=== PATIENT | male | born 1930 | race Caucasian/White ===

== ENCOUNTER 2016-10-27 11:48 | Observation (INO) | payer MEDICARE, OTHER ==
--- NOTE | 2016-10-27 12:12 | ERNOTE ---
Date of Service: 10/27/16 Time Seen by Provider: 10/27/16 12:05 Stated Complaint: CHEST CONGESTION Presenting Symptoms:: cough Source: patient, family - granddtr Exam Limitations: no limitations Immunizations: IMMUNIZATION HX Immunizations Up to Date Yes History of Influenza Vaccine Yes Hx Pneumococcal Vaccination Yes Allergies/Adverse Reactions: Allergies No Known Allergies Allergy (Verified 10/27/16 11:59) Home Medications: HOME MEDICATIONS Atorvastatin Calcium 40 mg PO DAILY 10/27/16 [Last Taken Unknown] Chlorthalidone [Hygroton] 12.5 mg PO DAILY 10/27/16 [Last Taken Unknown] Cholecalciferol (Vitamin D3) [Vitamin D] 2,000 unit PO DAILY 10/27/16 [Last Taken Unknown] Lisinopril [Prinivil] 10 mg PO DAILY 10/27/16 [Last Taken Unknown] Pantoprazole Sodium 40 mg PO DAILY 10/27/16 [Last Taken Unknown] Propranolol HCl 80 mg PO DAILY 10/27/16 [Last Taken Unknown] Thiamine HCl [B-1] 100 mg PO DAILY 10/27/16 [Last Taken Unknown] - Pain Score Pain Score #1 Pain Score: 0 - History of Present Ilness Narrative: 86yo, M, presents to ER for evaluation of cough. He reports cough started yesterday, but describes cough as terrible. Reports sinus congestion and drainage for 2-3 days, along with lightheadedness. Date (Duration): 10/26/16 Modifying Factors - Improves: Reports: other - none Modifying Factors - Worsens: Reports: other - none Associated Symptoms: Reports: cough - productive cough with [place] sputum, shortness of breath, wheezing, nasal congestion, nasal drainage, lightheadedness , sore throat, other - possible subjective. Denies: earache Review of Systems - Review of Systems Constitutional: Present: fever - subjective, fatigue ENT: Present: nose congestion, nasal drainage, sore throat. Absent: ear pain, ear discharge Respiratory: Present: shortness of breath, cough, wheezing Cardiology: Absent: chest pain, palpitations, syncope, edema Gastrointestinal/Abdominal: Absent: nausea, vomiting Skin: Absent: rash Neurological: Absent: other - granddtr denies noting confusion - Patient's Past Medical History Patient History - Medical: Diabetes Type 2 Insulin Dependent Patient History - Cardiac/Respiratory: COPD, Hypertension, Hyperlipidemia, Sleep Apnea Patient History - Cancer: Bladder Patient History - Surgical Procedures: No surgical history Patient History - Other: None - Social History Living Situations: home Psych History: No pertinent hx Smoking Status: Former smoker Alcohol Use: occasionally Drug Use: none - Immunizations Immunizations Up to Date: Yes Hx Pneumococcal Vaccination: Yes History of Influenza Vaccine: Yes Physical Exam - Physical Exam General Appearance: Present: wd/wn, alert, no apparent distress Ears, Nose, Throat: Present: nasal congestion - moderate nasal dc , normal pharynx, other - TMs intact george and free of erythema Respiratory: Present: no respiratory distress, no accessory muscle use, rales - george bases. Absent: rhonchi, wheezing Cardiovascular/Chest: Present: regular rate, rhythm - murmur present most prominant over R. sternal border Neurological Exam: Present: alert, oriented, normal mood/affect ED Progress - Date and Time Seen: Date and Time: 10/27/16 13:35 O2 sats 88-91% on RA, started on 2LNC sats 92% on 2LNC. Spoke with WILBERT Talley re: admission. Admission accepted. Discussed with pt and family, pt agrees to admission. Continues to have rales to george bases. 10/27/16 13:52 Pt PCP at [facility], spoke with WILBERT Talley. Will need to contact [facility] to check bed availability. 10/27/16 14:10 Updated pt and family re: possible [facility] admission. Call has been placed to [facility], but awaiting return call. 10/27/16 14:57 Provider returned call to the [facility] in [place]. Spoke with Cirilo, the legal office administrator on duty. Discussed possibility of transfer to [facility]. Cirilo reports their hospital is "full". Pt will be admitted to [facility]. Called and spoke with Noa Millan, who confirmed admission. Also discussed final CXR results and radiology suggesting possible follow up with CT with Nilson Anderson. [facility], they note CXR available and will fax after consent to release received. [facility] [place] and will fax. - Results and Orders Patient's Lab Results:: I have reviewed the patient's lab results. - Vital Signs Patient's Vital Signs:: I have reviewed the patient's vital signs. Vital Signs: Vital Signs 10/27/16 11:53 Temperature 37.7 C H Pulse Rate 85 Respiratory 18 Rate Blood Pressure 127/80 O2 Sat by Pulse 92 Oximetry - X-Ray X-Ray #1 X-Ray: chest Interpretation: Reviewed by me X-ray Comments: [facility] PATIENT RADIOLOGY STUDY REPORT Patient Patient Name:NILA MOCK Date: 1930 Sex: M Order Number: [id number] Unique Exam ID: [id number] Exam Requested: CXRPALAT - Chest PA Lateral * Date Scheduled: 10-27-2016 12:48 PM Study Priority: Requesting Service: Requesting Physician: Jovita Kahn Reason for Exam: productive cough, fever Radiological Report : [place] [address] NAME: NILA MOCK : 1930 MR #: [id number] CC: LOC: ER ADM DATE: X-RAY REPORT RAD/Chest PA Lateral * Exam Date: 10/27/2016 12:48 Ordering Physician: Jovita Kahn HISTORY: productive cough, fever Additional history from technologist: Productive cough, dizziness. Lightheadedness. TECHNIQUE: PA and lateral views of the chest were obtained. 4 images. COMPARISONS: None Available FINDINGS: Chest PA Lateral * Hyperinflated lung volumes. There is a opacity in the right middle lobe, with obscuration of the right cardiac border. No definable pneumothorax. There is a small right-sided pleural effusion, with the lateral image suggesting a potential loculated component versus pleural-based mass in the posterior aspect of the right lower chest. Cardiomegaly suggested. Vascular calcification overlying the aortic knob suggestive of atherosclerosis. Trachea is in normal position, given patient positioning. Bones show degenerative changes of the spine. IMPRESSION: 1. Right middle lobe opacity noted. Correlate clinically for pneumonia. 2. Small right-sided pleural effusion, with a potential loculated component versus pleural-based mass seen on the lateral image projecting over the posterior aspect of the right chest. 3. Recommend radiographic follow-up to document resolution. Routine chest CT can be considered if there is a clinical concern for possible malignancy. 4. Cardiomegaly. Electronically signed by Norma Almanza M.D.. Norma Almanza MD Dict: 10/27/16 1316 Typed: 10/27/16 1316/ 10/27/16 1320 10/27/16 1323 , Approved by: NORMA ALMANZA Approval Date: 10-27-2016 Approval Time: 01:16 PM THIS REPORT WAS RECEIVED FROM THE [employer] SYSTEM - Progress/Reassessment Chief Complaint: Upper Respiratory Symptoms Departure - Departure Clinical Impression: COPD exacerbation Pneumonia Qualifiers: Pneumonia type: due to unspecified organism Laterality: right Lung location: middle lobe of lung Qualified Code(s): J18.1 - Lobar pneumonia, unspecified organism Disposition: [facility] Condition: Stable
[2016-10-27] MEDS ORDERED: ALBUTEROL SULFATE/IPRATROPIUM 3 ML NEBU IH ONE ×2 (12:17→12:20)
[2016-10-27 12:32] LABS: Hemoglobin 14.6 gm/dL (13.5-18.0); Mean Cell Volume 97.4 fl (78-100); Mean Corpuscular Hemoglobin 34.7 pg (27-31); Mean Corpuscular Hgb Conc 35.6 g/dl (32-36); Mean Platelet Volume 10.6 fl (6.0-9.5); Platelet Count 203 K/mm3 (150-450); Red Blood Count 4.21 M/mm3 (4.7-6.0); Red Cell Distribution Width 12.5 % (11.5-14.0); White Blood Count 15.2 K/mm3 (4.0-10.5)
[2016-10-27 12:41] LABS: Total Cells Counted 100
[2016-10-27 12:44] LABS: Albumin * 3.5 gm/dl (3.4-5.0); BUN/Creatinine Ratio 12.5 (9.0-21.6); Bilirubin, Total 0.7 mg/dL (0.0-1.1); Ca. Corrected For Albumin 8.9 mg/dL (8.4-10.2); Calcium * 8.8 mg/dL (7.9-10.9); Carbon Dioxide 30.1 mmol/L (24-32.6); Potassium 4.1 mmol/L (3.4-4.6); Total Protein 8.1 gm/dL (6.2-8.2)
[2016-10-27 12:45] LABS: Atypical (Reactive) Lymph 8 % (0-2); Eosinophil 1 % (0-3); Lymphocyte 6 % (20-51); Monocyte 14 % (0-9); Neutrophil 71 % (42-75); Neutrophil # 10.8 K/mm3 (1.3-6.0); Platelet Estimate Normal (NORMAL); RBC Morphology Normal (NORMAL)
[2016-10-27] MEDS ORDERED: AZITHROMYCIN 500 MG in DEXTROSE 5 % IN WATER 250 ML IV SCH ×2 (13:15)
[2016-10-27] MEDS ORDERED: ACETAMINOPHEN 325 MG TABLET PO PRN (15:30)
[2016-10-27] MEDS ORDERED: METHYLPREDNISOLONE SOD SUCC 80 MG in WATER FOR INJ.,BACTERIOSTATIC 0 ML IV SCH (17:00)
--- NOTE | 2016-10-27 17:03 | HP ---
Chief Complaint - Chief Complaint Date of Service: 10/27/16 Time of Service: 15:45 Chief Complaint: shortness of breath History of Present Illness: Nile is an 86 year old male patient of [facility] ([facility] in [place]) with a PMH of COPD, DM T2, HTN, HLD, GERD, FABIO (on cpap), BPH, etoh abuse, alcoholic fatty liver, Gout, RA, Chronic right plueral effusion and history of subpleural pulmonary nodules (followed by pulmonary at [facility]) who presented to the ER with c /o harsh cough x1 day and URI symptoms x 3 days. also c/o dyspea and wheezing. ER eval revealed elevated wbc at 15.2 with 71% neutrophils. chest xray showed RML pneumonia, small right sided pleural effusion with a potentially locuated component vs pleural based mass and cardiomegaly. In the ER, that patient desaturated to 88% on RA and needed 2L NC supplementation to maintain oxygen saturation of 93%. Patient uses O2 at 3L at night only but does not use oxygen during the day. Patient was started on Rocephin 1 gm iv q 24 hours and Azithromycin 500 mg iv daily in the ER. The ER called [facility] in [place] but they declined transfer of the patient, stating that their facility is full. Thus, patient to be admitted for RML pneumonia and COPD exacerbation. - Patient's Past Medical History Patient History - Medical: Alcohol Abuse, Diabetes Type 2 Insulin Dependent, GERD, Rheumatoid Arthritis Patient History - Cardiac/Respiratory: COPD, Hypertension, Hyperlipidemia, CPAP/ BiPAP Home Use, Sleep Apnea Patient History - Cancer: Bladder Patient History - Surgical Procedures: Urology - TURB Patient History - Other: None - Family History Father Family History - Medical: , History Unknown Family History - Cardiac/Respiratory: History Unknown Family History - Cancer: No pertinent family hx Mother Family History - Medical: History Unknown Family History - Cardiac/Respiratory: History Unknown Family History - Cancer: History Unknown - Social History Living Situations: home Psych History: No pertinent hx Smoking Status: Former smoker Have you smoked in the past 12 months: No Do you dip or chew tobacco: No Smoking Start Date: 07/05/02 Patient requests Smoking Cessation Consult: No Initiate information on Smoking Cessation: No Alcohol Use: occasionally Drug Use: none - Immunizations Immunizations Up to Date: Yes Hx Pneumococcal Vaccination: Yes History of Influenza Vaccine: Yes Review Of Systems (GEN) - Review of Systems Generalized/Overall Review: Present: Weakness, Fever, Malaise EENTM: Present: No Symptoms Reported Respiratory: Present: Cough, Shortness of Breath, Wheezing. Absent: Stridor Cardiac: Present: No Symptoms Reported Abdominal: Present: No Symptoms Reported Genitourinary: Present: No Symptoms Reported Musculoskeletal: Present: No Symptoms Reported Neurological: Present: No Symptoms Reported Skin: Present: No Symptoms Reported Endocrine: Present: No Symptoms Reported Misc: All systems neg except as marked Immunizations: IMMUNIZATION HX Immunizations Up to Date Yes History of Influenza Vaccine Yes Hx Pneumococcal Vaccination Yes Allergies/Adverse Reactions: Allergies Allergy/AdvReac Type Severity Reaction Status Date / Time No Known Allergies Allergy Verified 10/27/16 11:59 Home Medications: HOME MEDICATIONS Atorvastatin Calcium 40 mg PO DAILY 10/27/16 [Last Taken Unknown] Chlorthalidone [Hygroton] 12.5 mg PO DAILY 10/27/16 [Last Taken Unknown] Cholecalciferol (Vitamin D3) [Vitamin D] 2,000 unit PO DAILY 10/27/16 [Last Taken Unknown] Lisinopril [Prinivil] 10 mg PO DAILY 10/27/16 [Last Taken Unknown] Pantoprazole Sodium 40 mg PO DAILY 10/27/16 [Last Taken Unknown] Propranolol HCl 80 mg PO DAILY 10/27/16 [Last Taken Unknown] Thiamine HCl [B-1] 100 mg PO DAILY 10/27/16 [Last Taken Unknown] Exam - Exam Vital Signs: Vital Signs - Last Taken Temp 36.5 C 10/27/16 15:41 Pulse 73 10/27/16 15:41 Resp 16 10/27/16 15:41 BP 137/57 10/27/16 15:41 Pulse Ox 96 10/27/16 15:41 Constitutional: Present: Alert, Cooperative, No distress, Elderly ENT Exam: Present: hard of hearing Eye Exam: bilateral eye: normal inspection Neck: Present: supple Back Exam: Present: no CVA tenderness Breasts: Present: Exam deferred Respiratory: Present: chest non-tender, rales - RML towards base, wheezing, expiration (prolonged) Cardiovascular/Chest: Present: normal peripheral pulses, regular rate, rhythm, no chest tenderness Peripheral Pulses: carotid (R): 2+, carotid (L): 2+, radial (R): 2+, radial (L) : 2+ Abdomen: Present: soft, nontender, nondistended /Rectal: Present: Exam deferred Extremity: Present: non-tender, normal inspection Skin Exam: Present: normal color, warm/dry, no cyanosis Diagnostic Studies: Laboratory Results WBC 15.2 K/mm3 (4.0-10.5) H 10/27/16 12:25 RBC 4.21 M/mm3 (4.7-6.0) L 10/27/16 12:25 Hgb 14.6 gm/dL (13.5-18.0) 10/27/16 12:25 Hct 41.0 % (42.0-52.0) L 10/27/16 12:25 MCV 97.4 fl (78-100) 10/27/16 12:25 MCH 34.7 pg (27-31) H 10/27/16 12:25 MCHC 35.6 g/dl (32-36) 10/27/16 12:25 RDW 12.5 % (11.5-14.0) 10/27/16 12:25 Plt Count 203 K/mm3 (150-450) 10/27/16 12:25 MPV 10.6 fl (6.0-9.5) H 10/27/16 12:25 Neutrophils % (Manual) 71 % (42-75) 10/27/16 12:25 Lymphocytes % (Manual) 6 % (20-51) L 10/27/16 12:25 Monocytes % (Manual) 14 % (0-9) H 10/27/16 12:25 Eosinophils % (Manual) 1 % (0-3) 10/27/16 12:25 Neutrophils # (Manual) 10.8 K/mm3 (1.3-6.0) H 10/27/16 12:25 Lymphocytes # (Manual) 0.9 k/mm3 (1.5-3.5) L 10/27/16 12:25 Monocytes # (Manual) 2.1 k/mm3 (0.0-1.0) H 10/27/16 12:25 Eosinophils # (Manual) 0.2 k/mm3 (0.0-0.7) 10/27/16 12:25 Atypic/Reactive Lymphs 8 % (0-2) H 10/27/16 12:25 Platelet Estimate Normal (NORMAL) 10/27/16 12:25 RBC Morphology Normal (NORMAL) 10/27/16 12:25 Sodium 135 mmol/L (132-142) 10/27/16 12:25 Plasma Sodium 136 mmol/L (130-142) 10/27/16 12:25 Potassium 4.1 mmol/L (3.4-4.6) 10/27/16 12:25 Chloride 96 mmol/L (97-106) L 10/27/16 12:25 Carbon Dioxide 30.1 mmol/L (24-32.6) 10/27/16 12:25 Anion Gap 13.0 mmol/L (6.8-13.8) 10/27/16 12:25 BUN 11 mg/dL (6-23) 10/27/16 12:25 Creatinine 0.88 mg/dL (0.4-1.4) 10/27/16 12:25 Est GFR (Non-Af Amer) 87 mL/min (60-130) 10/27/16 12:25 BUN/Creatinine Ratio 12.5 (9.0-21.6) 10/27/16 12:25 Random Glucose 135 mg/dL (70-110) H 10/27/16 12:25 Calcium 8.8 mg/dL (7.9-10.9) 10/27/16 12:25 Calcium Adj for Albumin 8.9 mg/dL (8.4-10.2) 10/27/16 12:25 Total Bilirubin 0.7 mg/dL (0.0-1.1) 10/27/16 12:25 AST 57 U/L (0-48) H 10/27/16 12:25 ALT 65 U/L (19-67) 10/27/16 12:25 Alkaline Phosphatase 157 U/L (50-170) 10/27/16 12:25 Total Protein 8.1 gm/dL (6.2-8.2) 10/27/16 12:25 Albumin 3.5 gm/dl (3.4-5.0) 10/27/16 12:25 Assessment/Plan - Narrative Narrative: Pneumonia, RML - Antibiotics - Rocephin 1 gm iv q 24 hours - Day #1 - Azithromycin 500 mg iv q 24 hours - Day #1 - Start probiotics - Incentive spirometer q 2 hours while awake - Cornet q 2 hours while awake. - Check urine for legionella or strep pneumonia. - sputum culture ordered and pending. COPD exacerbation - Antibiotics as above - Steroids due to hypoxia and respiratory distress - Solumedrol 80 mg iv q 8 hours - Day #1 - Duonebs TID while awake - Also with acute on chronic respiratory failure - baseline need is oxygen at night only - currently needing oxygen during the day to maintain sats greater than 90 % - cornet q 2 hours while awake - incentive spirometer q 2 hours while awake. Etoh abuse - chronically drinks 2-4 alcoholic beverages a day - last alcoholic beverage was 10/27/16 in the am. - etoh withdrawal protocol ordered - seizure precautions - banana bag at 100 ml per hour - check ekg, mg and phos - monitor on telemetry FABIO - on cpap - cpap ordered while in hospital - cont pulse ox at night HTN - vital signs q 4 hours DM - accu-check at AC with low dose sliding scale as needed. - consistent carb diet. Code status: DNR VTE: lovenox GI proph: protonix. - Assessment/Plan (1) Pneumonia Problem: Acute Qualifiers: Pneumonia type: due to unspecified organism Laterality: right Lung location: middle lobe of lung Qualified Code(s): J18.1 - Lobar pneumonia, unspecified organism (2) COPD exacerbation Problem: Acute (3) Acute and chronic respiratory failure with hypoxia Problem: Acute (4) HTN (hypertension) Problem: Chronic Qualifiers: Hypertension type: essential hypertension Qualified Code(s): I10 - Essential (primary) hypertension (5) HLD (hyperlipidemia) Problem: Chronic Qualifiers: Hyperlipidemia type: unspecified Qualified Code(s): E78.5 - Hyperlipidemia , unspecified (6) Diabetes Problem: Chronic Qualifiers: Diabetes mellitus type: type 2 Diabetes mellitus complication status: with unspecified complications Diabetes mellitus termite treater insulin use: without snf use Qualified Code(s): E11.8 - Type 2 diabetes mellitus with unspecified complications (7) GERD (gastroesophageal reflux disease) Problem: Chronic Qualifiers: Esophagitis presence: esophagitis presence not specified Qualified Code(s) : K21.9 - Gastro-esophageal reflux disease without esophagitis (8) ETOH abuse Problem: Chronic (9) FABIO on CPAP Problem: Chronic
[2016-10-27] MEDS: SACCHAROMYCES BOULARDII 250 MG CAPSULE PO SCH ×2 (17:57→20:48)
[2016-10-27] MEDS ORDERED: ENOXAPARIN SODIUM 40 MG/0.4 ML SYRG SC SCH (18:00)
[2016-10-27] MEDS ORDERED: LORazepam 2 MG/ML DISP.SYRIN IV PRN ×3 (18:08)
[2016-10-27] MEDS ORDERED: MULTIVIT INFUSN,ADULT 4,VIT K 10 ML, THIAMINE HCL 100 MG in NORMAL SALINE 1,000 ML IV ONE (18:08)
[2016-10-27] MEDS: ALBUTEROL SULFATE/IPRATROPIUM 3 ML NEBU IH SCH (18:14)
[2016-10-27 18:38] LABS: Magnesium 1.6 mg/dL (1.2-2.8); Phosphorus 3.3 mg/dL (2.2-4.2)
[2016-10-27] MEDS ORDERED: MAGNESIUM OXIDE 400 MG TABLET PO ONE (18:50)
[2016-10-27] MEDS ORDERED: MAGNESIUM OXIDE 400 MG TABLET ONE (20:32)
[2016-10-27] MEDS: METHYLPREDNISOLONE SOD SUCC 80 MG in WATER FOR INJ.,BACTERIOSTATIC 0 ML IV SCH (20:38)
[2016-10-27] MEDS: FOLIC ACID 1 MG TABLET PO SCH (20:38)
[2016-10-27] MEDS: MULTIVITAMINS 1 CAP CAPSULE PO SCH (20:38)
[2016-10-27] MEDS: INSULIN LISPRO 100 UNITS/ML VIAL SC SCH (20:40)
[2016-10-28] MEDS: METHYLPREDNISOLONE SOD SUCC 80 MG in WATER FOR INJ.,BACTERIOSTATIC 0 ML IV SCH ×2 (03:38→12:02)
[2016-10-28] MEDS ORDERED: MAGNESIUM OXIDE 400 MG TABLET PO SCH (04:00)
[2016-10-28 05:51] LABS: Hematocrit 39.6 % (42.0-52.0); Hemoglobin 13.9 gm/dL (13.5-18.0); Mean Cell Volume 97.5 fl (78-100); Mean Corpuscular Hemoglobin 34.2 pg (27-31); Mean Corpuscular Hgb Conc 35.1 g/dl (32-36); Mean Platelet Volume 11.1 fl (6.0-9.5); Neutrophil # 5.6 K/mm3 (1.3-6.0); Neutrophil % 89.3 % (42-75.0); Platelet Count 188 K/mm3 (150-450); Red Blood Count 4.06 M/mm3 (4.7-6.0); Red Cell Distribution Width 12.1 % (11.5-14.0); White Blood Count 6.3 K/mm3 (4.0-10.5)
[2016-10-28 06:02] LABS: Albumin * 3.1 gm/dl (3.4-5.0); Anion Gap 12.5 mmol/L (6.8-13.8); BUN/Creatinine Ratio 14.5 (9.0-21.6); Bilirubin, Total 0.6 mg/dL (0.0-1.1); Ca. Corrected For Albumin 8.9 mg/dL (8.4-10.2); Calcium * 8.5 mg/dL (7.9-10.9); Carbon Dioxide 28.7 mmol/L (24-32.6); Magnesium 1.8 mg/dL (1.2-2.8); Phosphorus 3.3 mg/dL (2.2-4.2); Potassium 4.2 mmol/L (3.4-4.6); Total Protein 7.5 gm/dL (6.2-8.2)
[2016-10-28] MEDS: ALBUTEROL SULFATE/IPRATROPIUM 3 ML NEBU IH SCH ×2 (06:21→13:50)
[2016-10-28] MEDS: INSULIN LISPRO 100 UNITS/ML VIAL SC SCH ×2 (06:59→12:01)
[2016-10-28] MEDS ORDERED: MAGNESIUM OXIDE 400 MG TABLET PO ONE (07:00)
[2016-10-28] MEDS ORDERED: THIAMINE HCL 100 MG TABLET PO SCH (09:00)
[2016-10-28] MEDS ORDERED: PROPRANOLOL HCL 80 MG TABLET PO SCH (09:00)
[2016-10-28] MEDS ORDERED: CHLORTHALIDONE 25 MG TABLET PO SCH (09:00)
[2016-10-28] MEDS ORDERED: LISINOPRIL 10 MG TABLET PO SCH (09:00)
[2016-10-28] MEDS ORDERED: ATORVASTATIN CALCIUM 40 MG TABLET PO SCH (09:00)
[2016-10-28] MEDS ORDERED: PANTOPRAZOLE SODIUM 40 MG TABLET.EC PO SCH ×2 (09:00)
[2016-10-28] MEDS ORDERED: CHOLECALCIFEROL 1,000 UNIT CAPSULE PO SCH (09:00)
[2016-10-28] MEDS: SACCHAROMYCES BOULARDII 250 MG CAPSULE PO SCH (09:01)
[2016-10-28] MEDS: MULTIVITAMINS 1 CAP CAPSULE PO SCH (09:01)
[2016-10-28] MEDS: FOLIC ACID 1 MG TABLET PO SCH (09:01)
[2016-10-28 11:09] VITALS: BP 108/57
--- NOTE | 2016-10-28 12:04 | DS ---
(1) Pneumonia Problem: Acute Qualifiers: Pneumonia type: due to unspecified organism Laterality: right Lung location: middle lobe of lung Qualified Code(s): J18.1 - Lobar pneumonia, unspecified organism (2) COPD exacerbation Problem: Acute (3) Acute and chronic respiratory failure with hypoxia Problem: Acute (4) HTN (hypertension) Problem: Chronic Qualifiers: Hypertension type: essential hypertension Qualified Code(s): I10 - Essential (primary) hypertension (5) HLD (hyperlipidemia) Problem: Chronic Qualifiers: Hyperlipidemia type: unspecified Qualified Code(s): E78.5 - Hyperlipidemia , unspecified (6) Diabetes Problem: Chronic Qualifiers: Diabetes mellitus type: type 2 Diabetes mellitus complication status: with unspecified complications Diabetes mellitus technician terminal and repeater insulin use: without technician terminal and repeater use Qualified Code(s): E11.8 - Type 2 diabetes mellitus with unspecified complications (7) GERD (gastroesophageal reflux disease) Problem: Chronic Qualifiers: Esophagitis presence: esophagitis presence not specified Qualified Code(s) : K21.9 - Gastro-esophageal reflux disease without esophagitis (8) ETOH abuse Problem: Chronic (9) FABIO on CPAP Problem: Chronic Description of Stay: Date of Admission: 10/27/16 Date of Discharge: 10/28/16 Description of Stay: Nile is an 86 year old male patient of [facility] ([facility] in [place]) with a PMH of COPD, DM T2, HTN, HLD, GERD, FABIO (on cpap), BPH, etoh abuse, alcoholic fatty liver, Gout, RA, Chronic right plueral effusion and history of subpleural pulmonary nodules (followed by pulmonary at [facility]) who presented to the ER with c /o harsh cough x1 day and URI symptoms x 3 days. also c/o dyspea and wheezing. ER eval revealed elevated wbc at 15.2 with 71% neutrophils. chest xray showed RML pneumonia, small right sided pleural effusion with a potentially locuated component vs pleural based mass and cardiomegaly. In the ER, patient desaturated to 88% on RA and needed 2L NC supplementation to maintain oxygen saturation of 93%. Patient uses O2 at 3L at night only but does not use oxygen during the day. Patient was started on Rocephin 1 gm iv q 24 hours and Azithromycin 500 mg iv daily in the ER. The ER called [facility] in [place] but they declined transfer of the patient, stating that their facility is full. Thus, patient to be admitted for RML pneumonia and COPD exacerbation. Patient was started on IV steroids and pulmonary toileting. By the next day, patient was able to be weaned off daytime oxygen. WBC the next morning was WNL and patient was discharged with oral antibiotics. A total time of 41 minutes was spent with the patient discussing the plan of care, prescription options, reconciliation of medications, preparing/dictating discharge summary. Procedures Performed: none Discharge Disposition: Home self care Disposition: Home self-care Condition: Undetermined Discharge Activity: Activity as tolerated Discharge Diet: Consistent carbs Problem Oriented Discharge Instructions to Patient/Family: Community-Acquired Pneumonia, Adult, [id number] Additional Patient Instructions (free text): [facility] ongoing, please call and fax discharge information to them. Dental appt on FridayNov 19 at 10:30, it was rescheduled by Effie Raphael. Follow up with Dr. Chatman on 11/18/16 at 9:45am. New Medication: 1. Levaquin 500 mg by mouth daily x 5 days. Prescriptions (Any new or edited meds): Levofloxacin [Levaquin] 500 mg PO DAILY #5 tab Complete Home Medications List: Complete Home Medication List: Atorvastatin Calcium 40 mg PO DAILY 10/27/16 Chlorthalidone [Hygroton] 12.5 mg PO DAILY 10/27/16 Cholecalciferol (Vitamin D3) [Vitamin D3] 2,000 unit PO DAILY 10/27/16 Lisinopril [Prinivil] 10 mg PO DAILY 10/27/16 Pantoprazole Sodium 40 mg PO DAILY 10/27/16 Propranolol HCl 80 mg PO DAILY 10/27/16 Thiamine HCl [B-1] 100 mg PO DAILY 10/27/16 Levofloxacin [Levaquin] 500 mg PO DAILY #5 tab 10/28/16
[2016-10-28] MEDS ORDERED: AZITHROMYCIN 500 MG in DEXTROSE 5 % IN WATER 250 ML IV SCH ×2 (14:00)
[2016-10-28] MEDS ORDERED: ROSUVASTATIN CALCIUM 20 MG TABLET PO SCH (21:00)
== END 2016-10-28 16:00 | disposition home or self-care (01) ==
LOC: ER 11:48 → MS 13:52 → UNDOADMOB 13:52
PROVIDERS: ADMIT Nurse Practitioner Critical Care Medicine; ATTEND Internal Medicine
DX: J18.1 Lobar pneumonia, unspecified organism (principal); J44.1 Chronic obstructive pulmonary disease with (acute) exacerbation; J96.21 Acute and chronic respiratory failure with hypoxia; E11.9 Type 2 diabetes mellitus without complications; E78.5 Hyperlipidemia, unspecified; K21.9 Gastro-esophageal reflux disease without esophagitis; G47.33 Obstructive sleep apnea (adult) (pediatric); F10.10 Alcohol abuse, uncomplicated; K70.0 Alcoholic fatty liver; M06.9 Rheumatoid arthritis, unspecified
CPT/HCPCS: 36415; 71020; 80053; 83735; 83880; 84100; 85007; 85025; 87040; 93005; 94640; 94660; 96365; 96366; 96367; 96372; 96375; 96376; 99285; G0378

== ENCOUNTER 2016-11-25 07:41 | Emergency (ER) | payer MEDICARE, OTHER ==
--- NOTE | 2016-11-25 08:22 | ERNOTE ---
Abdominal HPI - Narrative Date of Service: 11/25/16 - General Chief Complaint: Constipation Time Seen by Provider: 11/25/16 08:03 Source: patient Exam Limitations: no limitations - Immun/Allergies/Home Medications Immunizatons: IMMUNIZATION HX Immunizations Up to Date Yes History of Influenza Vaccine Yes Hx Pneumococcal Vaccination Yes Allergies/Adverse Reactions: Allergies No Known Allergies Allergy (Verified 11/25/16 07:53) Home Medications: HOME MEDICATIONS Atorvastatin Calcium 40 mg PO DAILY 10/27/16 [Last Taken Unknown] Chlorthalidone [Hygroton] 12.5 mg PO DAILY 10/27/16 [Last Taken Unknown] Cholecalciferol (Vitamin D3) [Vitamin D3] 2,000 unit PO DAILY 10/27/16 [Last Taken Unknown] Lisinopril [Prinivil] 10 mg PO DAILY 10/27/16 [Last Taken Unknown] Pantoprazole Sodium 40 mg PO DAILY 10/27/16 [Last Taken Unknown] Propranolol HCl 80 mg PO DAILY 10/27/16 [Last Taken Unknown] Thiamine HCl [B-1] 100 mg PO DAILY 10/27/16 [Last Taken Unknown] Levofloxacin [Levaquin] 500 mg PO DAILY #5 tab 10/28/16 [Last Taken Unknown] Acetaminophen [Pain Reliever] 500 mg PO QID PRN 11/25/16 [Last Taken Unknown] Acetaminophen with Codeine [Tylenol with Codeine #3 Tablet] 1 - 2 tab PO Q4H PRN 11/25/16 [Last Taken Unknown] Albuterol Sulfate [Proair Respiclick] 90 mcg IH PRN PRN 11/25/16 [Last Taken Unknown] Amoxicillin 500 mg PO TID 11/25/16 [Last Taken Unknown] Atorvastatin Calcium 40 mg PO HS 11/25/16 [Last Taken Unknown] Budesonide/Formoterol Fumarate [Symbicort 80-4.5 Mcg Inhaler] 4.5 mcg IH BID [Last Taken Unknown] Flunisolide 2 spray NS BID 11/25/16 [Last Taken Unknown] Ketoconazole [Nizoral A-D] 200 ml TP 11/25/16 [Last Taken Unknown] Meclizine HCl [Antivert] 25 mg PO TID 11/25/16 [Last Taken Unknown] Oxybutynin Chloride [Ditropan Xl] 5 mg PO DAILY 11/25/16 [Last Taken Unknown] Sildenafil Citrate [Viagra] 100 mg PO DAILY PRN 11/25/16 [Last Taken Unknown] Tiotropium [place] [Spiriva Respimat] 18 mcg IH DAILY 11/25/16 [Last Taken Unknown] - History of Present Illness Narrative: Patient presents to the ED for "can't poop". He relates that he has his teeth out and has been taking [place]. With this he has been unable to have a TRINO for 3 days. No abdominal pain. No vomiting. No fever. He relates he just wants to have a bowel movement. Dental pain well controlled. Timing: constant Quality: mild Activities at Onset: none Modifying Factors - (Improves): Present: other - nothing Modifying Factors - (Worsens): Present: other - nothing Associated Symptoms: Absent: back pain, chest pain, fever/chills, shortness of breath, swelling/mass in abdomen Prior Treatment: Present: other - now on narcotics Review of Systems - Review of Systems Constitutional: Absent: fever Respiratory: Absent: shortness of breath Cardiology: Absent: chest pain Gastrointestinal/Abdominal: Present: See HPI. Absent: abdominal pain Genitourinary: Absent: dysuria Skin: Present: other - bruising from the dental work Neurological: Absent: weakness - Patient's Past Medical History Patient History - Medical: Alcohol Abuse, Diabetes Type 2 Insulin Dependent, GERD, Rheumatoid Arthritis Patient History - Cardiac/Respiratory: COPD, Hypertension, Hyperlipidemia, CPAP/ BiPAP Home Use, Sleep Apnea Patient History - Cancer: Bladder Patient History - Surgical Procedures: Other, Urology Patient History - Other: None - Family History Father Family History - Medical: , History Unknown Family History - Cardiac/Respiratory: History Unknown Family History - Cancer: No pertinent family hx Mother Family History - Medical: History Unknown Family History - Cardiac/Respiratory: History Unknown Family History - Cancer: History Unknown - Social History Living Situations: alone Psych History: No pertinent hx Smoking Status: Former smoker Have you smoked in the past 12 months: No Do you dip or chew tobacco: No Alcohol Use: occasionally Drug Use: none - Immunizations Immunizations Up to Date: Yes Hx Pneumococcal Vaccination: Yes History of Influenza Vaccine: Yes Physical Exam - Physical Exam General Appearance: Present: alert, no apparent distress Head Exam: Present: normal inspection, no evidence of injury Eye Exam: Normal inspection: bilateral, PERRL: bilateral Ears, Nose, Throat: Present: normal ENT inspection Neck: Present: normal inspection Respiratory: Present: no respiratory distress, normal breath sounds, no accessory muscle use, lungs clear Cardiovascular/Chest: Present: regular rate, rhythm, normal peripheral pulses Gastrointestinal/Abdominal: Present: normal bowel sounds, nontender, nondistended, soft, no organomegaly, other - I cannot elicit any tenderness in the abdomen Back Exam: Absent: CVA tenderness (R), CVA tenderness (L) Extremity Exam: Present: normal inspection Neurological Exam: Present: alert, normal mood/affect, no motor/sensory deficits Skin Exam: Present: normal color, warm/dry, other - bruising from the dental procedure ED Progress - Vital Signs Patient's Vital Signs:: I have reviewed the patient's vital signs. Vital Signs: Vital Signs 11/25/16 07:48 Temperature 35.8 C L Pulse Rate 85 Respiratory 14 Rate Blood Pressure 110/90 O2 Sat by Pulse 91 Oximetry - X-Ray X-Ray #1 X-Ray: abdomen Interpretation: Reviewed by me X-ray Comments: I reviewed official radiology report - Progress/Reassessment Chief Complaint: Constipation Progress Note-Subjective: 11/25/16 11:05 Patient relates large BM when I re-check. he is requesting to go home. no abdominal tendenress. i told him to take a stool softner. I discussed warning signs and reasons to return as well as the n eed for close f/u. Departure Clinical Impression: Constipation - Departure Disposition: Home self-care Condition: Stable Instructions: Constipation, Adult, [id number] Additional Instructions: Fluids. Take stool softener. Follow-up with your primary doctor in 2-3 days for a re-check. REturn for fever, vomiting or if your condition worsens or changes in any way. Referrals: Lexis Chatman MD [Primary Care Provider] -
[2016-11-25 11:26] VITALS: BP 140/58
== END 2016-11-25 11:24 | disposition home or self-care (01) ==
LOC: ER 07:41
DX: K59.03 Drug induced constipation (principal); T39.1X5A Adverse effect of 4-Aminophenol derivatives, initial encounter; E11.9 Type 2 diabetes mellitus without complications; Z79.4 Long term (current) use of insulin; K21.9 Gastro-esophageal reflux disease without esophagitis; J44.9 Chronic obstructive pulmonary disease, unspecified; I10 Essential (primary) hypertension; E78.5 Hyperlipidemia, unspecified; Z85.51 Personal history of malignant neoplasm of bladder

== ENCOUNTER 2019-03-22 15:09 | Observation (INO) ==
[2019-03-22] MEDS ORDERED: ACETAMINOPHEN 500 MG TABLET PO PRN (15:19)
[2019-03-22] MEDS ORDERED: PAMIDRONATE DISODIUM IV ONE ×2 (15:23)
[2019-03-22] MEDS ORDERED: WATER IV ONE ×2 (15:23)
[2019-03-22] MEDS ORDERED: DEXTROSE 5% IV ONE ×2 (15:23)
[2019-03-22] MEDS ORDERED: FAMOTIDINE 20 MG in DEXTROSE 5 % IN WATER 100 ML IV SCH ×2 (15:30)
[2019-03-22 15:45] LABS: Hematocrit 41.5 % (42.0-52.0); Hemoglobin 13.7 gm/dL (13.5-18.0); Mean Corpuscular Hemoglobin 33.3 pg (27-31); Mean Platelet Volume 11.1 fl (8-11.3); Neutrophil # 8.8 K/mm3 (1.3-6.0); Neutrophil % 83.7 % (42-75.0); Platelet Count 223 K/mm3 (150-450); Red Blood Count 4.11 M/mm3 (4.7-6.0); Red Cell Distribution Width 14.3 % (11.5-14.0); White Blood Count 10.5 K/mm3 (4.0-10.5)
[2019-03-22 15:55] LABS: Albumin * 3.2 gm/dl (3.4-5.0); Anion Gap 11.1 mmol/L (6.8-13.8); BUN/Creatinine Ratio 12.4 (9.0-21.6); Bilirubin, Total 0.8 mg/dL (0.0-1.1); Ca. Corrected For Albumin 11.5 mg/dL (8.4-10.2); Calcium * 11.2 mg/dL (7.9-10.9); Carbon Dioxide 32.5 mmol/L (24-32.6); Potassium 3.6 mmol/L (3.4-4.6); Total Protein 7.2 gm/dL (6.2-8.2)
--- NOTE | 2019-03-22 15:58 | HP ---
Chief Complaint - Chief Complaint Date of Service: 03/22/19 Time of Service: 15:33 Chief Complaint: I feel weak and confused History of Present Illness: 88-year-old male with past medical history of osteoarthritis, bladder cancer, COPD, degenerative joint disease, type 2 diabetes, gout, obstructive sleep apnea, skin cancer, vertigo, was evaluated in the outpatient internal medicine clinic for worsening confusion, lethargy, generalized weakness, and worsening hypercalcemia on labs. Patient son who accompanies him today reports that he has been more confused than usual and is now lethargic and weak. Patient has had several falls during the past 2 weeks the last one occurring 4 days ago. After the fall occurred he was brought into our ER and underwent evaluation and lab testing. Labs are significant for mild hyponatremia and hypercalcemia, serial x-rays were also negative for any acute fractures. Patient was discharged with fall precautions back to the assisted living facility where he resides. Since then the patient son reports his symptoms of confusion lethargy and generalized weakness has worsened. Patient has been under outpatient monitoring for hypercalcemia but given his deterioration and an unintentional weight loss of more than 10 pounds since his last clinic visit several weeks ago, decision to admit the patient directly from the clinic was made. Patient son reports that the patient's appetite has been poor but yesterday he was able to eat a little more than usual, he reports that they have been trying to encourage oral fluid intake with the patient has only been able to drink minimal amounts of fluids due to increasing confusion. The case was discussed with the patient and his son and it was explained to them that the patient is seriously ill and has an unknown cause of hypercalcemia but given the patient's past medical history of different types of cancers specifically bladder cancer and skin cancer there is a possibility that the elevated calcium levels can be due to recurrence of cancer. Patient's son expressed that he understood and agreed to the patient being hospitalized. He also informed me that the patient is a DNR/DNI status in the event that the patient becomes unresponsive. Referral to neurology was placed several months ago but his son explains to me that due to the fact that he is from the [place] he was never able to obtain authorization from the [place] to see the neurologist. Given the patient's worsening cognitive function and increasing forgetfulness and falls, I had a high suspicion for dementia or other neurological conditions. We will continue work-up for those differential diagnoses at a later date. Medical History (Last Reviewed 03/22/19 @ 14:24 by Jules Nielsen LPN) Degenerative joint disease (Chronic) Vertigo (Chronic) Systolic murmur (Chronic) Obstructive sleep apnea (Chronic) Diabetes (Chronic) Onset Date: ~11/2015 COPD (chronic obstructive pulmonary disease) (Chronic) Arthritis (Chronic) Skin cancer Bladder cancer Onset Date: ~1969 reoccurrence 2018 Closed skull fracture Gout Surgical History: Surgical History (Last Reviewed 03/22/19 @ 14:24 by Jules Nielsen LPN) History of cataract surgery skin cancer removal Family History: Family History (Last Reviewed 03/22/19 @ 14:24 by Jules Nielsen LPN) Brother No problems noted. Father , 80s COPD (chronic obstructive pulmonary disease) Lupus Mother , 80s Dementia Social History: (Last Reviewed 03/22/19 @ 14:24 by Jules Nielsen LPN) Social History: Marital status: / household members: none current occupational status: retired current occupation: Retired Service: Yes Tobacco: Smoking Status: Never smoker Tobacco: How many years used: 55 how long ago did patient quit smoking: he states he quit at the age of 71 Alcohol: alcohol intake: current Alcohol type: beer, hard liquor alcohol intake frequency: 0-2 drinks per day Substance Use: substance use type: does not use Dietary Habits: caffeine: Yes caffeine comment: occ. Type: coffee Peds Patient Hx - Developmental: No Pertinent Hx Peds Patient Hx - Medical: No Pertinent Hx Peds Patient Hx - Cardiac/Respiratory: No Pertinent Hx Peds Patient Hx - Surgical: No Surgical History Patient History - Cancer: No Hx of Cancer Review Of Systems (GEN) - Review of Systems Generalized/Overall Review: Present: Weakness, Malaise, Weight loss EENTM: Present: No Symptoms Reported Respiratory: Present: No Symptoms Reported Cardiac: Present: No Symptoms Reported Abdominal: Present: No Symptoms Reported Genitourinary: Present: No Symptoms Reported Musculoskeletal: Present: Joint Pain - Pain in multiple joints due to recurrent falls Neurological: Present: Tremors, Weakness, Other - Increasing confusion and lethargy Skin: Present: Bruising Endocrine: Present: No Symptoms Reported Immunizations: IMMUNIZATION HX Immunizations Up to Date Yes History of Influenza Vaccine Yes Hx Pneumococcal Vaccination Yes Allergies/Adverse Reactions: Allergies Allergy/AdvReac Type Severity Reaction Status Date / Time No Known Allergies Allergy Verified 03/22/19 14:25 Home Medications: HOME MEDICATIONS acetaminophen 325 mg tablet 650 mg PO TID PRN tab 08/31/17 [Last Taken Unknown] methyl salicylate-menthol ea TP .4xday PRN 08/31/17 [Last Taken Unknown] miscellaneous medical supply See Dose Instructions .ROUTE .MEDSUPPLY #1 ea 08/31/17 [Last Taken Unknown] tolnaftate 1 % topical spray 1 spray TP DAILY 08/31/17 [Last Taken Unknown] flunisolide 25 mcg (0.025 %) nasal spray 2 spray NIDIA BID PRN 09/23/17 [Last Taken Unknown] thiamine HCl (vitamin B1) 100 mg tablet 100 mg PO DAILY 03/09/18 [Last Taken Unknown] albuterol sulfate 90 mcg/actuation breath activated powder inhaler 2 inh IH Q6H PRN #3 ea 09/10/18 [Last Taken Unknown] budesonide-formoterol HFA 80 mcg-4.5 mcg/actuation aerosol inhaler 2 puff IH BID #10.2 g 09/10/18 [Last Taken Unknown] lisinopril 10 mg tablet 10 mg PO BID #180 tab 09/10/18 [Last Taken Unknown] pantoprazole 20 mg tablet,delayed release 20 mg PO DAILY #90 tab 09/10/18 [Last Taken Unknown] atorvastatin 40 mg tablet 40 mg PO HS 12/17/18 [Last Taken Unknown] meclizine 25 mg tablet 25 mg PO TID PRN #20 tab 12/30/18 [Last Taken Unknown] propranolol 10 mg tablet 10 mg PO DAILY tab 01/07/19 [Last Taken Unknown] donepezil 5 mg tablet 5 mg PO DAILY #90 tab 01/27/19 [Last Taken Unknown] mirabegron 50 mg tablet,extended release 24 hr 50 mg PO Q24H 01/27/19 [Last Taken Unknown] sertraline 50 mg tablet 50 mg PO DAILY #90 tab 01/27/19 [Last Taken Unknown] tiotropium bromide 2.5 mcg/actuation mist for inhalation 18 mcg IH DAILY #4 g 01/27/19 [Last Taken Unknown] walker See Rx Instructions .ROUTE .MEDSUPPLY #1 ea 02/12/19 [Last Taken Unknown] cholecalciferol (vitamin D3) 4,000 unit capsule 4,000 unit PO DAILY #90 cap 03/22/19 [Last Taken Unknown] Exam - Exam Constitutional: Present: Alert, Cooperative, Well developed, No distress, Elderly, Thin and frail ENT Exam: Present: normal ENT inspection, pharynx normal, TMs normal, hard of hearing Eye Exam: bilateral eye: normal inspection, PERRL, EOMI Neck: Present: non-tender, full range of motion, supple, normal inspection, trachea midline Back Exam: Present: normal inspection, no CVA tenderness, no vertebral tenderness Breasts: Present: Exam deferred, Nontender Respiratory: Present: chest non-tender, lungs clear, normal breath sounds, no respiratory distress, no accessory muscle use Cardiovascular/Chest: Present: normal peripheral pulses, regular rate, rhythm, no chest tenderness, no edema, no gallop, no JVD, no murmur, no rub Peripheral Pulses: carotid (R): 3+, carotid (L): 3+, femoral (R): 3+, femoral (L): 3+, dorsalis-pedis (R): 3+, dorsalis-pedis (L): 3+ Abdomen: Present: Normal bowel sounds, soft, nontender, nondistended, no rebound tenderness, no hepatospenomegaly, no masses /Rectal: Present: Exam deferred Extremity: Present: non-tender, no calf tenderness, normal capillary refill, pelvis stable, pedal edema - 1+ pedal edema Skin Exam: Present: other - Senile purpura on dorsum of hands Lymphatic: Present: no adenopathy Neurologic: Present: alert, abnormal gait, depressed affect, disoriented x 3, dizzy/light-headedness Appearance: Present: neat, no memory impairment, impaired insight, impaired recent memory Eye contact: Present: cooperative, good eye contact, decreased rate of speech Thoughts: Present: normal thought pattern, no apparent hallucination Assessment/Plan - Narrative Narrative: Decision for direct admit to inpatient [facility] floor for treatment of hypercalcemia, generalized weakness, altered mental status was made. Labs to evaluate cell counts, hemoglobin, electrolytes particularly sodium and calcium levels as well as renal function were ordered. We also ordered a PTH RP which is a tumor marker for humoral neoplasms but it is a send out lab and will not be sent out until tomorrow according to laborer tree tapping. In the meantime we will treat patient with aggressive IV hydration and IV bisphosphonate to treat his hypercalcemia and head CT without contrast was ordered to rule out any acute abnormalities of GRINDING MILL OPERATOR. Patient is a DNR/DNI status and family has been briefed on the severity and seriousness of these conditions however they were ensure that all will be done in order to treat the patient. - Assessment/Plan (1) Hypercalcemia Problem: Acute (2) Hypernatremia Problem: Acute (3) H/O primary malignant neoplasm of urinary bladder Problem: Acute (4) Hypotension Problem: Acute (5) Diabetes 1.5, managed as type 2 Problem: Acute (6) Dehydration Problem: Acute (7) Generalized weakness Problem: Acute (8) Recurrent falls while walking Problem: Acute (9) Altered mental state Problem: Acute
[2019-03-22] MEDS ORDERED: ALBUTEROL SULFATE 2.5 MG/0.5 ML VIAL.NEB IH PRN (16:15)
[2019-03-22] MEDS ORDERED: NORMAL SALINE 1,000 ML IV ONE (20:30)
[2019-03-22] MEDS: PANTOPRAZOLE SODIUM 20 MG TABLET.DR PO SCH (22:36)
[2019-03-22] MEDS: FLUTICASONE PROPION/SALMETEROL 14 PUFF DISK.W.DEV IH SCH (22:37)
[2019-03-23] MEDS: PANTOPRAZOLE SODIUM 20 MG TABLET.DR PO SCH (08:34)
[2019-03-23] MEDS: MIRABEGRON 25 MG TAB.PO.ER PO SCH (08:34)
[2019-03-23] MEDS: SERTRALINE HCL 50 MG TABLET PO SCH (08:34)
[2019-03-23] MEDS: CHOLECALCIFEROL 1,000 UNIT CAPSULE PO SCH (08:34)
[2019-03-23] MEDS: FLUTICASONE PROPION/SALMETEROL 14 PUFF DISK.W.DEV IH SCH ×2 (08:34→20:10)
[2019-03-23] MEDS: THIAMINE HCL 100 MG TABLET PO SCH (08:34)
--- NOTE | 2019-03-23 09:03 | PN ---
Subjective - Date and Time Seen Date: 03/23/19 Time: 08:56 Subjective Narrative: I feel better. Objective Objective Narrative: 88-year-old male admitted for hypercalcemia, hypotension, and dehydration was evaluated at bedside was found to be afebrile and in no acute distress. Patient's condition is showing clinical improvement, he appears more alert and has more energy this morning. His color has also improved as well as his disposition. He has been treated with IV hydration and IV bisphosphonate in order to treat his hypercalcemia, follow-up lab results are pending to reevaluate calcium levels. Patient's blood pressure remains on the lower side but he maintains an adequate MAP. All antihypertensives as well as routine diuretics were held, however the patient has developed significant pedal edema and fine crackles at his lung bases. We will start mild diuresis in an effort to avoid further fluid overload. We will continue to monitor him closely. - Review of Systems Generalized/Overall Review: Reports: Weakness EENTM: Reports: No Symptoms Reported Respiratory: Reports: No Symptoms Reported Cardiac: Reports: Edema - Bilateral pedal edema Abdominal: Reports: No Symptoms Reported Genitourinary Symptoms: Reports: No Symptoms Reported Musculoskeletal Complaints: Reports: No Symptoms Reported Neurological: Reports: No Symptoms Reported Skin: Reports: No Symptoms Reported Endocrine: Reports: No Symptoms Reported - Vitals Vitals: Last Vital Signs Temp 36.8 C 03/23/19 06:37 Pulse 87 03/23/19 06:37 Resp 20 03/23/19 06:37 BP 109/52 03/23/19 06:37 Pulse Ox 96 03/23/19 06:37 - Abnormal Lab Findings Abnormal Lab Findings: Abnormal Lab Results 03/22/19 03/22/19 Range/Units 15:30 15:30 RBC 4.11 L (4.7-6.0) M/mm3 Hct 41.5 L (42.0-52.0) % MCV 101.0 H (78-100) fl MCH 33.3 H (27-31) pg RDW 14.3 H (11.5-14.0) % Immature Gran % (Auto) 0.50 H (0.001-0.429) % Immature Gran # (Auto) 0.05 H (0.000-0.0310) K/mm3 Neutrophils % 83.7 H (42-75.0) % Lymphocytes % 6.9 L (20-51) % Neutrophils # 8.8 H (1.3-6.0) K/mm3 Lymphocytes # 0.72 L (1.5-3.5) k/mm3 Plasma Sodium 143 H (130-142) mmol/L Random Glucose 162 H (70-110) mg/dL Calcium 11.2 H (7.9-10.9) mg/dL Calcium Adj for Albumin 11.5 H (8.4-10.2) mg/dL Albumin 3.2 L (3.4-5.0) gm/dl - Exam Constitutional: Present: Alert, Cooperative, Well developed, Well nourished, No distress, Elderly ENT Exam: Present: normal ENT inspection, pharynx normal, TMs normal, hard of hearing Neck: Present: non-tender, full range of motion, supple, normal inspection, trachea midline Breasts: Present: Exam deferred Respiratory: Present: chest non-tender, no respiratory distress, no accessory muscle use, crackles - Bibasilar crackles Cardiovascular/Chest: Present: normal peripheral pulses, regular rate, rhythm, no chest tenderness, no JVD, systolic murmur Abdomen: Present: Normal bowel sounds, soft, nontender, nondistended, no rebound tenderness, no hepatospenomegaly, no masses /Rectal: Present: Exam deferred Extremity: Present: normal range of motion, no calf tenderness, normal capillary refill, pelvis stable, pedal edema - Bilateral 2+ pedal edema, swelling Skin Exam: Present: normal color, warm/dry, no cyanosis Lymphatic: Present: no adenopathy Neurologic: Present: thermal cutter helper II-XII nml as tested, normal cerebellar test, no motor/sensory deficits, alert, normal mood/affect, oriented x 3 Appearance: Present: appropriate appearance, appropriate insight, neat, no memory impairment Eye contact: Present: cooperative, good eye contact, normal speech Thoughts: Present: normal thought pattern, no apparent hallucination Assessment/Plan Plan Narrative: We will resume mild diuresis to address fluid overload and follow-up with lab results to reassess hypercalcemia. We will manage IV fluids accordingly. In the meantime we will keep monitoring patient closely with telemetry. - Problems/Diagnosis (1) Hypercalcemia Problem: Acute (2) Hypernatremia Problem: Acute (3) H/O primary malignant neoplasm of urinary bladder Problem: Acute (4) Hypotension Problem: Acute (5) Diabetes 1.5, managed as type 2 Problem: Acute (6) Dehydration Problem: Acute (7) Generalized weakness Problem: Acute (8) Recurrent falls while walking Problem: Acute (9) Altered mental state Problem: Resolved
[2019-03-23 09:14] LABS: Albumin * 2.5 gm/dl (3.4-5.0); Anion Gap 7.8 mmol/L (6.8-13.8); BUN/Creatinine Ratio 13.3 (9.0-21.6); Ca. Corrected For Albumin 11.1 mg/dL (8.4-10.2); Calcium * 10.2 mg/dL (7.9-10.9); Carbon Dioxide 35.3 mmol/L (24-32.6); Potassium 3.1 mmol/L (3.4-4.6); Total Protein 5.8 gm/dL (6.2-8.2)
[2019-03-23] MEDS: FUROSEMIDE 10 MG/ML VIAL IV SCH (09:31)
[2019-03-23] MEDS ORDERED: NORMAL SALINE 500 ML IV ONE (10:38)
[2019-03-23] MEDS ORDERED: POTASSIUM CHLORIDE 40 MEQ in NORMAL SALINE 1,000 ML IV SCH (12:30)
[2019-03-23] MEDS ORDERED: LEVOFLOXACIN IN DEXTROSE 5 % 500 MG/100 ML BAG IV SCH (15:45)
[2019-03-23] MEDS ORDERED: POTASSIUM CHLORIDE 40 MEQ in DEXTROSE 5%-0.5 NORMAL SALINE 1,000 ML IV SCH (19:00)
[2019-03-24 06:31] LABS: Hematocrit 33.6 % (42.0-52.0); Hemoglobin 11.2 gm/dL (13.5-18.0); Mean Cell Volume 100.6 fl (78-100); Mean Corpuscular Hemoglobin 33.5 pg (27-31); Mean Corpuscular Hgb Conc 33.3 g/dl (32-36); Mean Platelet Volume 10.8 fl (8-11.3); Neutrophil # 9.1 K/mm3 (1.3-6.0); Neutrophil % 88.4 % (42-75.0); Platelet Count 173 K/mm3 (150-450); Red Blood Count 3.34 M/mm3 (4.7-6.0); Red Cell Distribution Width 14.2 % (11.5-14.0); White Blood Count 10.3 K/mm3 (4.0-10.5)
[2019-03-24 06:50] LABS: Albumin * 2.4 gm/dl (3.4-5.0); Anion Gap 11.3 mmol/L (6.8-13.8); BUN/Creatinine Ratio 10.6 (9.0-21.6); Bilirubin, Total 0.8 mg/dL (0.0-1.1); Ca. Corrected For Albumin 10.5 mg/dL (8.4-10.2); Calcium * 9.5 mg/dL (7.9-10.9); Potassium 3.3 mmol/L (3.4-4.6); Total Protein 5.5 gm/dL (6.2-8.2)
--- NOTE | 2019-03-24 09:25 | DS ---
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 Patient sensorium temporarily improved but has now returned to below his baseline. He has difficulty responding to questions and is less alert, during rounds he was noticed to be lethargic and less energetic than yesterday. Hypercalcemia has improved and calcium is near normal levels and response to treatment with IV fluids and IV bisphosphonates. The suspicion for neoplasm as a cause of the hypercalcemia is higher now given the fact that a non-tender fixed mass was found on his right cervical neck region. CT of his neck revealed a suspicious mass right below his right parotid gland, he also has an enlarged lymph node. Biopsy was recommended however but given the patient's condition the family has decided to place the patient under hospice care once he is discharged back to the [facility], and the patient will be moved to the [facility] side of the facility. They have accepted the fact that it is likely the patient is actively dying and are okay with no further invasive measures such as biopsies or additional treatments. Therefore we are discharging the patient to the [facility] with hospice services and all necessary medications to make him comfortable. The family has also requested that his diet not be restricted and that the patient be allowed to eat what ever he wants. It was explained to them that chest x-ray done yesterday afternoon after a choking spell confirms that he aspirated and aspiration pneumonia and or pneumonitis is very likely however given the patient's poor prognosis I am in agreement that the patient should not be restricted as far as diet. Procedures Performed: none Care Plan Goals: Discharge patient to the [facility] while he will be moved to the [facility] unit and receive hospice care. Results and Findings: Lab Pending Results 03/22/19 15:30: WBC 10.5, RBC 4.11 L, Hgb 13.7, Hct 41.5 L, MCV 101.0 H, MCH 33.3 H, MCHC 33.0, RDW 14.3 H, Plt Count 223, MPV 11.1, Immature Gran % (Auto) 0.50 H, Immature Gran # (Auto) 0.05 H, Neutrophils % 83.7 H, Lymphocytes % 6.9 L, Monocytes % 7.9, Eosinophils % 0.7, Basophils % 0.3, Nucleated RBC % 0.0, Neutrophils # 8.8 H, Lymphocytes # 0.72 L, Monocytes # 0.8, Eosinophils # 0.1, Absolute Basophils 0.0 03/22/19 15:30: Sodium 142, Plasma Sodium 143 H, Potassium 3.6, Chloride 102, Carbon Dioxide 32.5, Anion Gap 11.1, BUN 14, Creatinine 1.13, Est GFR (Non-Af Amer) 65, BUN/Creatinine Ratio 12.4, Random Glucose 162 H, Calcium 11.2 H, Calcium Adj for Albumin 11.5 H, Total Bilirubin 0.8, AST 39, ALT 23, Alkaline Phosphatase 121, Total Protein 7.2, Albumin 3.2 L 03/23/19 08:55: Sodium 143 H, Plasma Sodium 143 H, Potassium 3.1 L, Chloride 103, Carbon Dioxide 35.3 H, Anion Gap 7.8, BUN 12, Creatinine 0.90, Est GFR (Non-Af Amer) 85 D, BUN/Creatinine Ratio 13.3, Random Glucose 101 D, Calcium 1 0.2, Calcium Adj for Albumin 11.1 H, Total Bilirubin 1.0, AST 31, ALT 17 L, Alkaline Phosphatase 95, Total Protein 5.8 L, Albumin 2.5 L 03/24/19 06:00: Sodium 145 H, Plasma Sodium 145 H, Potassium 3.3 L, Chloride 105, Carbon Dioxide 32.0, Anion Gap 11.3, BUN 10, Creatinine 0.94, Est GFR (Non- Af Amer) 81, BUN/Creatinine Ratio 10.6, Random Glucose 99, Calcium 9.5, Calcium Adj for Albumin 10.5 H, Total Bilirubin 0.8, AST 33, ALT 18 L, Alkaline Phosphatase 88, Total Protein 5.5 L, Albumin 2.4 L 03/24/19 06:15: WBC 10.3, RBC 3.34 L, Hgb 11.2 L, Hct 33.6 L, MCV 100.6 H, MCH 33.5 H, MCHC 33.3, RDW 14.2 H, Plt Count 173, MPV 10.8, Immature Gran % (Auto) 0.40, Immature Gran # (Auto) 0.04 H, Neutrophils % 88.4 H, Lymphocytes % 5.8 L, Monocytes % 4.9, Eosinophils % 0.2, Basophils % 0.3, Nucleated RBC % 0.0, Neutrophils # 9.1 H, Lymphocytes # 0.60 L, Monocytes # 0.5, Eosinophils # 0.0, Absolute Basophils 0.0 Discharge Location: [facility] Disposition: Hospice Home Home Health Agency: [facility] Hospice Condition: Poor Face to Face Encounter completed per [facility] Guidelines: No Discharge Activity: Activity as tolerated Discharge Diet: General/regular food Referrals: Altagracia Brand MD [Primary Care Provider] - [facility] tableComplete Home Medications List: Complete Home Medication List: acetaminophen 325 mg tablet 325 mg PO TID PRN tab 08/31/17 miscellaneous medical supply See Dose Instructions .ROUTE .MEDSUPPLY #1 ea 08/31/17 flunisolide 25 mcg (0.025 %) nasal spray 2 spray NIDIA BID PRN 09/23/17 thiamine HCl (vitamin B1) 100 mg tablet 100 mg PO DAILY 03/09/18 pantoprazole 20 mg tablet,delayed release 20 mg PO DAILY #90 tab 09/10/18 atorvastatin 40 mg tablet 40 mg PO HS 12/17/18 meclizine 25 mg tablet 25 mg PO TID PRN #20 tab 12/30/18 propranolol 10 mg tablet 10 mg PO DAILY tab 01/07/19 mirabegron 50 mg tablet,extended release 24 hr 50 mg PO .QOD 01/27/19 sertraline 50 mg tablet 50 mg PO DAILY #90 tab 01/27/19 tiotropium bromide 2.5 mcg/actuation mist for inhalation 18 mcg IH DAILY #4 g 01/27/19 ivanna See Rx Instructions .ROUTE .MEDSUPPLY #1 ea 02/12/19 ALPRAZolam [Xanax] 0.5 mg PO BID PRN #60 tab 03/24/19 Albuterol Sulfate [Albuterol Sulfate Hfa] 2 puff INHALATION QID PRN 03/24/19 Atropine Sulfate [Atropine 1% Ophthalmic Solution] 2 drp SUBLINGUAL Q4H PRN #15 ml 03/24/19 Atropine Sulfate [Atropine 1% Ophthalmic Solution] 2 drp SUBLINGUAL Q4H PRN #15 ml 03/24/19 Budesonide/Formoterol Fumarate [Symbicort 80-4.5 Mcg Inhaler] 10.2 gm INHALATION BID 03/24/19 Carboxymethylcellulose Sodium [Refresh Tears] 1 drp OPHTHALMIC (EYE) .HOURLY PRN 03/24/19 Cholecalciferol [Vitamin D] 2,000 unit PO DAILY 03/24/19 Morphine Sulfate [Morphine Sulfate Conc. Oral Solution] 5 mg PO Q1H PRN #30 ml 03/24/19 Morphine Sulfate [Morphine Sulfate Conc. Oral Solution] 5 mg PO Q1H PRN #30 ml 03/24/19 Ondansetron [Zofran Odt] 8 mg PO Q6H PRN #30 tab.rapdis 03/24/19 Ondansetron [Zofran Odt] 8 mg PO Q6H PRN #30 tab.rapdis 03/24/19 Polyethylene Glycol 3350 [Miralax] 17 gm PO DAILY PRN 03/24/19 Sennosides [Senokot] 8.6 mg PO BID #60 tab 03/24/19 Sennosides [Senokot] 8.6 mg PO BID #60 tab 03/24/19 Tolnaftate [Tinactin] 1 spray TOPICAL BID PRN 03/24/19 traMADol HCL [Tramadol HCl] 50 mg PO Q8H PRN 03/24/19
[2019-03-24] MEDS: FUROSEMIDE 10 MG/ML VIAL IV SCH (09:49)
[2019-03-24] MEDS: CHOLECALCIFEROL 1,000 UNIT CAPSULE PO SCH (09:50)
[2019-03-24] MEDS: THIAMINE HCL 100 MG TABLET PO SCH (09:50)
[2019-03-24] MEDS: MIRABEGRON 25 MG TAB.PO.ER PO SCH (09:50)
[2019-03-24] MEDS: SERTRALINE HCL 50 MG TABLET PO SCH (09:50)
[2019-03-24] MEDS: FLUTICASONE PROPION/SALMETEROL 14 PUFF DISK.W.DEV IH SCH (09:53)
[2019-03-24] MEDS: PANTOPRAZOLE SODIUM 20 MG TABLET.DR PO SCH (09:53)
[2019-03-24 14:48] VITALS: BP 128/74
== END 2019-03-24 15:30 | disposition hospice, home (50) ==
LOC: INTOOBSV 15:09 → MS 15:09
PROVIDERS: ADMIT Family Medicine; ATTEND Family Medicine
DX: E83.52 Hypercalcemia; R53.1 Weakness; I95.9 Hypotension, unspecified; E11.9 Type 2 diabetes mellitus without complications; R41.82 Altered mental status, unspecified; W19.XXXA Unspecified fall, initial encounter; E86.0 Dehydration; E87.0 Hyperosmolality and hypernatremia
CPT/HCPCS: 36415; 70450; 70491; 71010; 71045; 80053; 83519; 85025; 87081; 92610; 94660; 96365; 96366; 96375; G0378; G0379; J2430; Q9967